=== PATIENT | female | born 1970 | race Caucasian/White ===

== ENCOUNTER 2023-11-07 01:11 | Emergency (ER) | payer MEDICAID ==
[~2023-11-07] VITALS: Ht 167.6 cm; Wt 77.0 kg
[2023-11-07 01:12] VITALS: BP 135/75; PULSE 74; RESP 16; TEMP 97.7; O2SAT 100
== END 2023-11-07 06:45 | disposition home or self-care (01) ==
LOC: ER 01:11
DX: T51.0X1A Toxic effect of ethanol, accidental (unintentional), initial encounter (principal); J45.909 Unspecified asthma, uncomplicated; I49.9 Cardiac arrhythmia, unspecified; Y92.9 Unspecified place or not applicable
CPT/HCPCS: 93005; 99283

== ENCOUNTER 2023-11-07 06:32 | Emergency (ER) | payer MEDICAID ==
[~2023-11-07] VITALS: Ht 170.2 cm; Wt 75.0 kg
[2023-11-07 07:12] VITALS: O2SAT 98
[2023-11-07] MEDS: METOCLOPRAMIDE HCL 10MG TABLET PO ONE (08:45)
[2023-11-07 10:14] LABS: OPIATES URINE SCREEN NEGATIVE (NEGATIVE)
[2023-11-07 10:23] LABS: *AMPHETAMINES SCREEN URINE NEGATIVE (NEGATIVE); *BARBITURATES SCREEN URINE NEGATIVE (NEGATIVE); *BENZODIAZEPINES SCREEN URINE NEGATIVE (NEGATIVE); *COCAINE SCREEN URINE NEGATIVE (NEGATIVE); CANNABINOID URINE SCREEN NEGATIVE (NEGATIVE); ECSTASY MDMA SCREEN URINE NEGATIVE (NEGATIVE); METHADONE URINE SCREEN NEGATIVE (NEGATIVE); PHENCYCLIDINE URINE SCREEN NEGATIVE (NEGATIVE)
[2023-11-07 11:20] VITALS: BP 129/67; PULSE 100; RESP 20; TEMP 98.6
== END 2023-11-07 12:03 | disposition home or self-care (01) ==
LOC: ER 06:32
DX: S00.03XA Contusion of scalp, initial encounter (principal); J45.909 Unspecified asthma, uncomplicated; Z00.00 Encounter for general adult medical examination without abnormal findings; X58.XXXA Exposure to other specified factors, initial encounter; Y93.89 Activity, other specified; Y92.89 Other specified places as the place of occurrence of the external cause; Y99.8 Other external cause status
CPT/HCPCS: 99284; 70450; 80305; 81025; J8597